=== PATIENT | male | born 1990 | race African-American/Black ===

== ENCOUNTER 2018-08-17 11:08 | Emergency (ER) | payer SELFPAY ==
[2018-08-17] MEDS ORDERED: CEFTRIAXONE INJ 250 MG VIAL IM ONE (11:43)
[2018-08-17] MEDS ORDERED: AZITHROMYCIN 1 GM SUSP PACKET PO ONE (11:43)
--- NOTE | 2018-08-17 11:47 | ER Document Report ---
ED Medical Screen (RME) - General Chief Complaint: Abdominal Pain Stated Complaint: SIDE PAIN Time Seen by Provider: 08/17/18 11:36 Mode of Arrival: Ambulatory Information source: Patient Notes: This is a 28-year-old male presents to the emergency room with known exposure to chlamydia. Patient states his girlfriend was just treated yesterday for chlamydia. He denies any fever. He denies any abdominal pain. He denies any penile lesions. He does state he has had a faint rash on his face. TRAVEL OUTSIDE OF THE [place] IN LAST 30 DAYS: No - HPI Onset: Last week Onset/Duration: Gradual Quality of pain: No pain Severity: None Pain Level: Denies Associated Symptoms: denies: Chest pain, Nausea, Shortness of breath Exacerbated by: Denies Relieved by: Denies Similar symptoms previously: No Recently seen / treated by doctor: No - Related Data Smoking: Cigarettes Frequency of alcohol use: None Drug Abuse: None Allergies/Adverse Reactions: No Known Allergies Allergy (Unverified 08/17/18 11:10) Past Medical History - General Information source: Patient - Social History Cigarette use (# per day): Yes - Half a pack per day Chew tobacco use (# tins/day): No Frequency of alcohol use: None Drug Abuse: None Lives with: Family Family history: None - Medical History Medical History: Negative Surgical Hx: Negative Review of Systems - Review of Systems Constitutional: denies: Chills, Fever EENT: No symptoms reported Cardiovascular: denies: Chest pain, Palpitations, Heart racing Respiratory: denies: Cough, Hemoptysis, Short of breath Gastrointestinal: denies: Abdomen distended, Abdominal pain, Diarrhea Genitourinary: denies: Burning, Dysuria, Discharge Male Genitourinary: denies: Testicular pain, Penile discharge Musculoskeletal: No symptoms reported Skin: No symptoms reported Hematologic/Lymphatic: No symptoms reported Neurological/Psychological: No symptoms reported Physical Exam - Vital signs Vitals: Temp Pulse Resp BP Pulse Ox 98.3 F 84 14 124/71 97 08/17/18 11:12 08/17/18 11:12 08/17/18 11:12 08/17/18 11:12 08/17/18 11:12 Notes: Physical exam: GENERAL: Patient is alert and oriented x3, no acute distress HEAD: Atraumatic, normocephalic. EYES: Pupils equal round and reactive to light, extraocular movements intact, sclera anicteric, conjunctiva are normal. ENT: TMs normal, nares patent, oropharynx clear without exudates. NECK: Normal range of motion, supple without obvious mass LUNGS: Breath sounds clear to auscultation bilaterally and equal. No wheezes rales or rhonchi. HEART: Regular rate and rhythm without murmurs, rubs or gallops. ABDOMEN: Soft, normoactive bowel sounds. No tenderness to palpation. No guard ing, no rebound. No masses appreciated. EXTREMITIES: Normal range of motion, no pitting or edema. No clubbing or cyanosis. NEUROLOGICAL: Cranial nerves II through XII grossly intact. Normal speech, moving all extremities. PSYCH: Normal mood, normal affect. SKIN: Warm, Dry, normal turgor, no rashes or lesions noted. Course - Re-evaluation Re-evalutation: 08/17/18 15:11 Patient was treated with ceftriaxone IM and azithromycin. I recommended he follow-up with the health department in 1 week for retesting. - Vital Signs Vital signs: Temp Pulse Resp BP Pulse Ox 98.8 F 82 16 104/73 100 08/17/18 12:47 08/17/18 12:47 08/17/18 12:47 08/17/18 12:47 08/17/18 12:47 Doctor's Discharge - Discharge Clinical Impression: Exposure to chlamydia Condition: Stable Disposition: HOME, SELF-CARE Additional Instructions: As we discussed, I want you to hold off from sex for the following week. You could always go to the health department after that time to get retested for STD. If the blood test comes back positive, we will call you back to the ER. Otherwise, return to the emergency room for what rash, pain, lesions or any further concerns.
[2018-08-17] MEDS ORDERED: LIDOCAINE 1% INJ-PF (10 MG/ML) 30 ML SDV ONE (12:01)
[2018-08-17 12:57] VITALS: BP 104/73
== END 2018-08-17 12:51 | disposition home or self-care (01) ==
LOC: ER 11:08
DX: Z20.2 Contact with and (suspected) exposure to infections with a predominantly sexual mode of transmission (principal); R10.9 Unspecified abdominal pain; R21 Rash and other nonspecific skin eruption; F17.210 Nicotine dependence, cigarettes, uncomplicated
CPT/HCPCS: 99283; 96372; 36415; 86592; J3490; Q0144; J0696